=== PATIENT | male | born 1935 | race Caucasian/White ===

== ENCOUNTER 2017-04-18 12:00 | Inpatient (IN) | payer MEDICARE, OTHER ==
[~2017-04-18] VITALS: Ht 170.2 cm; Wt 71.7 kg
[~2017-04-18 12:00] MED LIST: ASPIR 8181 MG PO; AVELOX400 MG PO; AZOPT OPHTH1 %/10 M1 OP; COLACE100 MG PO; COREG25 MG PO; EFFIENT10 MG PO; FISH OIL 1,001000 M2 PO; IRON325 PO; LANTUSSOLASTAR SUBQ; LIPITOR 20 MG T20 M1 PO; LOSARTAN POTAS100 MG PO; LUMIGAN2.5 M1 OP; MEDROLDOSEPACK PO; METFORMIN HCL500 MG PO; MIRALAX17 GM PO; PRED FORTE 1% EY5 M1 OP; PROZAC20 MG PO; SYNTHROID25 MCG PO; TYLENOL325 MG PO; UNICOMPLEX M TA1 TA1 PO; WELLBUTRIN SR150 MG PO
[2017-04-18 12:12] VITALS: BP 181/75
[2017-04-18 12:52] LABS: ABSOLUTE EOSINOPHILS 0.2 thou/uL (0.0-0.7); ABSOLUTE MONOCYTES 0.4 thou/uL (0.0-1.2); ABSOLUTE NEUTROPHILS 4.7 thou/uL (1.6-8.1); BASOPHILS 0.5 %; EOSINOPHILS 2.8 %; HEMATOCRIT 37.7 % (42.0-52.0); HEMOGLOBIN 13.1 gm/dL (14.0-18.0); MCH 34.3 pg (26.0-34.0); MCHC 34.8 g/dL (28.0-37.0); MCV 98.6 fL (80.0-100.0); MONOCYTES 6.8 %; MPV 7.1 fl. (7.2-11.1); NUCLEATED RBCS 0 /100WBC; PLATELET COUNT* 263 thou/uL (150-400); POLYS 73.9 %; RBC 3.83 mil/uL (4.50-6.00); RDW-CV 13.6 % (10.5-14.5); WBC 6.3 thou/uL (4.0-11.0)
[2017-04-18 13:11] LABS: ANION GAP 7 mmol/L (7-16); BUN 17 mg/dL (7-18); CALCIUM 8.3 mg/dL (8.5-10.1); CHLORIDE 99 mmol/L (98-107); CO2 26 mmol/L (21-32); GLUCOSE 233 mg/dL (70-99); POTASSIUM 4.8 mmol/L (3.5-5.1); SODIUM 132 mmol/L (136-145)
[2017-04-18 13:18] LABS: ALBUMIN 3.3 g/dL (3.4-5.0); ALKALINE PHOSPHATASE 65 U/L (46-116); LIPASE 108 U/L (73-393); SGOT 15 U/L (15-37); SGPT 19 U/L (30-65); TOTAL BILIRUBIN 0.8 mg/dL (<0.1-1.0); TOTAL PROTEIN 6.5 g/dL (6.4-8.2); TROPONIN-I LEVEL <0.06 ng/mL (<0.06)
[2017-04-18 13:59] LABS: URINE BILIRUBIN NEGATIVE (Negative); URINE BLOOD NEGATIVE (Negative); URINE CLARITY CLEAR; URINE COLOR YELLOW; URINE GLUCOSE-RANDOM 1+ (Negative); URINE KETONES NEGATIVE (Negative); URINE LEUKOCYTES-REFLEX NEGATIVE (Negative); URINE NITRITE-REFLEX NEGATIVE (Negative); URINE PROTEIN 1+ (Negative); URINE SPECIFIC GRAVITY 1.025 (1.005-1.030); URINE UROBILINOGEN 0.2 E.U./dl (0.2-1.0)
--- NOTE | 2017-04-18 16:33 | EKG ---
[place] [address] ELECTROCARDIOGRAM REPORT Name: LOLY MUÑOZ Room: [place] [address] ADM IN [facility]#: [id number] Admission: 04/18/17 Attend Phys: Levar Garcia Discharge: Date of : 39 Report #: [id number] THIS REPORT FOR: //name// [facility] ED Test Date: 2017-04-18 Test Time: 12:43:50 Pat Name: LOLY MUÑOZ Department: Room: [place] [address] Gender: M Coldfusion: MS : 1935 Requested By: Aakash Apodaca Order Number: [id number] Reading MD: Dennis Powers Measurements Intervals [place] Rate: 44 P: 29 [place]: 201 QRS: -28 QRSD: 96 T: 25 QT: 496 QTc: 425 Interpretive Statements Sinus bradycardia Borderline left axis deviation Anteroseptal infarct, old Compared to ECG 10/27/2015 07:52:42 Myocardial infarct finding now present T-wave abnormality no longer present Electronically Signed On 04-18-2017 16:33:50 DIRECTOR OF QUALITY by Dennis Powers [email or web address] <ELECTRONICALLY SIGNED> By: Dennis Powers MD, FAC 04/18/17 1633 1243 1243 Dennis Powers MD, LOCATED WITHIN [facility] /EPI
[2017-04-18 16:49] VITALS: BP 151/38
[2017-04-18 17:15] VITALS: BP 152/69
[2017-04-18 20:00] VITALS: BP 141/78
[2017-04-19] VITALS: BP 141/63
[2017-04-19 04:00] VITALS: BP 138/67
[2017-04-19 07:23] LABS: ABSOLUTE EOSINOPHILS 0.2 thou/uL (0.0-0.7); ABSOLUTE LYMPHOCYTES 1.3 thou/uL (0.8-5.3); ABSOLUTE MONOCYTES 0.5 thou/uL (0.0-1.2); ABSOLUTE NEUTROPHILS 2.8 thou/uL (1.6-8.1); BASOPHILS 0.6 %; EOSINOPHILS 4.4 %; HEMATOCRIT 35.6 % (42.0-52.0); HEMOGLOBIN 12.7 gm/dL (14.0-18.0); LYMPHOCYTES 26.2 %; MCH 34.9 pg (26.0-34.0); MCHC 35.7 g/dL (28.0-37.0); MCV 97.7 fL (80.0-100.0); MONOCYTES 9.9 %; MPV 7.2 fl. (7.2-11.1); NUCLEATED RBCS 0 /100WBC; PLATELET COUNT* 240 thou/uL (150-400); POLYS 58.9 %; RBC 3.65 mil/uL (4.50-6.00); RDW-CV 13.4 % (10.5-14.5); WBC 4.8 thou/uL (4.0-11.0)
[2017-04-19 07:32] LABS: ALBUMIN 2.9 g/dL (3.4-5.0); ALKALINE PHOSPHATASE 57 U/L (46-116); ANION GAP 8 mmol/L (7-16); BUN 16 mg/dL (7-18); CALCIUM 8.1 mg/dL (8.5-10.1); CHLORIDE 106 mmol/L (98-107); CHOLESTEROL 100 mg/dL (<200); CO2 26 mmol/L (21-32); CREATININE 0.9 mg/dL (0.6-1.3); GLUCOSE 96 mg/dL (70-99); HDL CHOLESTEROL 58 mg/dL (>40); LDL CHOLESTEROL 31 mg/dL (<100); POTASSIUM 4.3 mmol/L (3.5-5.1); SGOT 14 U/L (15-37); SGPT 17 U/L (30-65); TC:HDL 1.7 Ratio (Not establshd); TOTAL BILIRUBIN 0.9 mg/dL (<0.1-1.0); TOTAL PROTEIN 5.8 g/dL (6.4-8.2); TRIGLYCERIDE 56 mg/dL (<150); VLDL 11 mg/dL (<40)
[2017-04-19 07:34] LABS: SERUM ASSESSMENT Clear; SODIUM 140 mmol/L (136-145)
[2017-04-19 08:15] VITALS: BP 131/76
[2017-04-19] MEDS ORDERED: PLAVIX 75 MG TA75 M1 PO (11:46)
[2017-04-19] MEDS ORDERED: COZAAR100 MG PO (11:49)
[2017-04-19 12:00] VITALS: BP 134/73
[2017-04-19 13:12] VITALS: BP 134/73
--- NOTE | 2017-04-19 16:45 | 2DMMODE ---
[place] [address] 2 D/M-MODE ECHOCARDIOGRAM Name: LOLY MUÑOZ Room: [address] IN [facility]#: [id number] Admission: 04/18/17 Attend Phys: Aakash Apodaca Discharge: 04/19/17 Date of : 39 Date of Service: 04/19/17 1645 Report #: [id number] THIS REPORT FOR: //name// APPROVED REPORT Study performed: 04/19/2017 11:53:54 EXAM: Comprehensive 2D, Doppler, and color-flow Echocardiogram Patient Location: In-Patient Room #: [facility] Status: routine BSA: 1.79 HR: 51 bpm BP: 131/76 mmHg Rhythm: NSR Other Information Study Quality: Good Indications AMS 2D Dimensions LVEF(%): 77.02 (>50%) IVSd: 10.08 (7-11mm) LVOT Diam: 21.99 (18-24mm) LVDd: 46.36 mm PWd: 9.61 (7-11mm) Ascending Ao: 32.20 (22-36mm) LVDs: 25.20 (25-40mm) Aortic Root: 36.26 mm Feldman's LVEF: 77.02 % Volumes Left Atrial Volume (Systole) LA ESV Index: 27.40 mL/m2 Aortic Valve AoV Peak Zi.: 1.39 m/s AO Peak Gr.: 7.77 mmHg LVOT Max P.46 mmHg AO Mean Gr.: 3.99 mmHg LVOT Mean P.51 mmHg LVOT Max V: 1.27 m/s AO V2 VTI: 28.17 cm LVOT Mean V: 0.70 m/s NEMESIO (VTI): 3.37 cm2 LVOT V1 VTI: 25.00 cm Mitral Valve E/A Ratio: 0.72 [place] [address] 2 D/M-MODE ECHOCARDIOGRAM Name: LOLY MUÑOZ Room: [address]#: [id number] Admission: 04/18/17 Attend Phys: Aakash Apodaca Discharge: 04/19/17 Date of : 39 Date of Service: 04/19/17 1645 Report #: [id number] MV Decel. Time: 277.64 ms MV E Max Zi.: 0.68 m/s MV PHT: 80.52 ms MVA (PHT): 2.73 cm2 TDI E/Lateral E': 6.18 E/Medial E': 9.71 Medial E' Zi.: 0.07 m/s Lateral E' Zi.: 0.11 m/s Pulmonary Valve PV Peak Zi.: 0.79 m/s PV Peak Gr.: 2.49 mmHg Tricuspid Valve TR Peak Gr.: 22.72 mmHg RVSP: 27.00 mmHg Left Ventricle The left ventricle is normal size. There is normal LV segmental wall motion. There is normal left ventricular wall thickness. Left ventricular systolic function is normal. The left ventricular ejection fraction is within the normal range. LVEF is 60-65%. Grade I - abnormal relaxation pattern. Right Ventricle The right ventricle is normal size. The right ventricular systolic function is normal. Atria The left atrium size is normal. The right atrium size is normal. Aortic Valve The aortic valve is normal in structure. Trace aortic regurgitation. There is no aortic valvular stenosis. Mitral Valve The mitral valve is normal in structure. There is no mitral valve regurgitation noted. No evidence of mitral valve stenosis. Tricuspid Valve The tricuspid valve is normal in structure. Trace tricuspid regurgitation. The RVSP is ____27___ mmHg. Pulmonic Valve The pulmonary valve is normal in structure. Trace [place] [address] 2 D/M-MODE ECHOCARDIOGRAM Name: LOLY MUÑOZ Room: [address] IN M.R.#: [id number] Admission: 04/18/17 Attend Phys: Aakash Apodaca Discharge: 04/19/17 Date of : 39 Date of Service: 04/19/17 1645 Report #: [id number] Great Vessels The aortic root is normal in size. IVC is normal in size and collapses with >50% inspiration Pericardium There is no pericardial effusion. <Conclusion> Left ventricular systolic function is normal. The left ventricular ejection fraction is within the normal range. <ELECTRONICALLY SIGNED> By: Alex Pierre MD, FACC 04/19/17 1645 1645 1645 Alex Pierre MD, FACC /INF
--- NOTE | 2017-04-21 10:39 | CON ---
[address] [address] CONSULTATION Name: LOLY MUÑOZ Room: [address]#: [id number] Admission: 04/18/17 Attend Phys: Levar Garcia Discharge: 04/19/17 Date of : 39 Report #: [id number] THIS REPORT FOR: //name// CC: Geronimo Apodaca DATE OF SERVICE: 04/18/2017 HISTORY OF PRESENT ILLNESS: This is a 81-year-old male patient who was evaluated by me for dizziness, some mild headache. He had some ambulation difficulty. This came spontaneously and then it became better spontaneously. His blood pressure was high when it happened. The dizziness was moderately severe, but his blood sugar was normal. He indicates usually he does not get any headache. REVIEW OF SYSTEMS: Indicate that he had this unsteadiness on the feet. He usually does not get a headache. He had a prior history of stent placement in the chest. He has a history of diabetes and hypertension and hyperlipidemia. He feels improved after coming here. He is not complaining of any new eye, cardiac, respiratory, GI, , musculoskeletal, constitutional, dermatological, hematological, psychiatric, throat, endocrine or allergic symptom associated with present symptomatology. PAST MEDICAL HISTORY: Negative for stroke. FAMILY HISTORY: Negative for early age stroke. SOCIAL HISTORY: He drinks alcohol. He drinks 2-3 drinks when he drinks. PHYSICAL EXAMINATION: NEUROLOGIC: Indicates he is alert, responsive, able to follow simple and complex command. His speech, concentration, fund of knowledge and memory is at his baseline. Cranial nerve examination 2-12 is unremarkable. He has symmetrical strength, sensation, reflexes and tones in all 4 extremities. There is no carotid bruit. There is no meningeal sign. There is no cerebellar sign. GENERAL: He looks pretty well-developed individual who does not have any dysmorphic features of eyes, ears and face. His vision and hearing looks adequate. EXTREMITIES: His pulses are difficult to feel, but he has no edema, cyanosis or jaundice. HEART: Indicates unremarkable heart sounds and no murmur, no atrial fibrillation. LUNGS: No respiratory difficulty or rhonchi was noticed. VITAL SIGNS: Blood pressure is 151/38, pulse is 60, respiration is 10 and temperature is 97.4, but the respiration has been varied from 18-12. Clinically, he does not [place] [address] CONSULTATION Name: LOLY MUÑOZ Gregory Room: [address]#: [id number] Admission: 04/18/17 Attend Phys: Levar Garcia Discharge: 04/19/17 Date of : 39 Report #: [id number] LABORATORY DATA: Indicated a normal white count, but sodium is somewhat low at 132 and glucose is high. 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 IMPRESSION: It looks like the patient's symptoms were because of uncontrolled hypertension. 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 There is no evidence of any central nervous system etiology, which needs any attention at the moment. I will suggest working up for any non-neurological etiology for the patient's symptom and he already takes aspirin a day and he indicates he is also takes Lipitor. Once his lipid profile comes tomorrow that may have to be readjusted, but the biggest emphasis should be evaluation and management of his hypertension and any neurological etiology for his symptoms. Thank you very much for this referral and we will follow this patient along with you. <ELECTRONICALLY SIGNED> By: Aleks Rodriguez MD 04/21/17 1039 1713 [id number] Rodriguez MD /nt
== END 2017-04-19 13:53 | disposition home or self-care (01) | DRG 78 ==
LOC: M.ERS 12:00 → M.2W 13:23 → M.TBA-ER 13:23 → M.2W 17:19
PROVIDERS: Physician Assistant; ADMIT Internal Medicine
DX: I67.4 Hypertensive encephalopathy (principal); E44.0 Moderate protein-calorie malnutrition; R00.1 Bradycardia, unspecified; I10 Essential (primary) hypertension; E11.9 Type 2 diabetes mellitus without complications; E78.5 Hyperlipidemia, unspecified; J44.9 Chronic obstructive pulmonary disease, unspecified; Z90.49 Acquired absence of other specified parts of digestive tract; Z87.891 Personal history of nicotine dependence; Z83.3 Family history of diabetes mellitus; Z82.49 Family history of ischemic heart disease and other diseases of the circulatory system; Z98.49 Cataract extraction status, unspecified eye; Z95.5 Presence of coronary angioplasty implant and graft

== ENCOUNTER 2017-04-21 19:55 | Inpatient (IN) | payer MEDICARE ==
[~2017-04-21] VITALS: Ht 170.2 cm; Wt 70.8 kg
[~2017-04-21 19:55] MED LIST changes: +COZAAR100 MG PO; +PLAVIX 75 MG TA75 M1 PO
[2017-04-21 19:56] VITALS: BP 139/71
[2017-04-21 20:23] LABS: HEMATOCRIT 38.2 % (42.0-52.0); HEMOGLOBIN 13.2 gm/dL (14.0-18.0); MCHC 34.5 g/dL (28.0-37.0); MCV 98.4 fL (80.0-100.0); MPV 7.7 fl. (7.2-11.1); NUCLEATED RBCS 0 /100WBC; PLATELET COUNT* 234 thou/uL (150-400); RBC 3.88 mil/uL (4.50-6.00); RDW-CV 13.8 % (10.5-14.5); WBC 14.8 thou/uL (4.0-11.0)
[2017-04-21 20:38] LABS: ABSOLUTE LYMPHOCYTES 0.6 thou/uL (0.8-5.3); ABSOLUTE MONOCYTES 0.6 thou/uL (0.0-1.2); ABSOLUTE NEUTROPHILS 13.6 thou/uL (1.6-8.1); ATYPICAL LYMPHS 2 %; PLATELET ESTIMATE ADEQUATE
[2017-04-21 20:41] LABS: ANION GAP 8 mmol/L (7-16); BUN 27 mg/dL (7-18); CALCIUM 8.7 mg/dL (8.5-10.1); CHLORIDE 102 mmol/L (98-107); CO2 28 mmol/L (21-32); CREATININE 1.3 mg/dL (0.6-1.3); GLUCOSE 272 mg/dL (70-99); POTASSIUM 4.6 mmol/L (3.5-5.1); SODIUM 138 mmol/L (136-145)
[2017-04-21 20:46] LABS: ALBUMIN 3.4 g/dL (3.4-5.0); ALKALINE PHOSPHATASE 63 U/L (46-116); SGOT 12 U/L (15-37); SGPT 17 U/L (30-65); TOTAL BILIRUBIN 0.7 mg/dL (<0.1-1.0); TOTAL PROTEIN 6.7 g/dL (6.4-8.2); TROPONIN-I LEVEL <0.06 ng/mL (<0.06)
[2017-04-21 20:51] LABS: INFLUENZA A ANTIGEN None Detected (None Detect); INFLUENZA B ANTIGEN None Detected (None Detect)
[2017-04-21 23:41] VITALS: BP 146/80
[2017-04-21 23:50] VITALS: BP 118/63
[2017-04-22 01:24] LABS: URINE BILIRUBIN NEGATIVE (Negative); URINE BLOOD NEGATIVE (Negative); URINE CLARITY CLEAR; URINE COLOR YELLOW; URINE GLUCOSE-RANDOM 3+ (Negative); URINE KETONES NEGATIVE (Negative); URINE LEUKOCYTES-REFLEX NEGATIVE (Negative); URINE NITRITE-REFLEX NEGATIVE (Negative); URINE PROTEIN NEGATIVE (Negative); URINE UROBILINOGEN 0.2 E.U./dl (0.2-1.0)
[2017-04-22 05:23] LABS: HEMATOCRIT 32.4 % (42.0-52.0); MCH 33.9 pg (26.0-34.0); MCHC 34.4 g/dL (28.0-37.0); MCV 98.5 fL (80.0-100.0); MPV 7.6 fl. (7.2-11.1); RBC 3.29 mil/uL (4.50-6.00); RDW-CV 13.8 % (10.5-14.5); WBC 12.7 thou/uL (4.0-11.0)
[2017-04-22 05:37] LABS: ALBUMIN 2.8 g/dL (3.4-5.0); CALCIUM 7.9 mg/dL (8.5-10.1); CREATININE 1.1 mg/dL (0.6-1.3); POTASSIUM 3.9 mmol/L (3.5-5.1); TOTAL BILIRUBIN 0.9 mg/dL (<0.1-1.0); TOTAL PROTEIN 5.7 g/dL (6.4-8.2)
[2017-04-22 06:00] LABS: HEMOGLOBIN 11.2 gm/dL (14.0-18.0)
[2017-04-22 08:12] VITALS: BP 136/65
[2017-04-22 12:00] VITALS: BP 128/62
[2017-04-22 14:08] VITALS: BP 142/70
--- NOTE | 2017-04-22 16:34 | EKG ---
[place] [address] ELECTROCARDIOGRAM REPORT Name: LOLY MUÑOZ Room: [address] ADM IN [facility].#: [id number] Admission: 04/21/17 Attend Phys: Adelina Cody MD Discharge: Date of : 39 Report #: [id number] THIS REPORT FOR: //name// [facility] ED Test Date: 2017-04-21 Test Time: 20:19:37 Pat Name: LOLY MUÑOZ Department: Room: [facility] Gender: M [employer] T[employer]: M : 1935 Requested By: Ellen Rodriguez Order Number: [id number] MD: Fracisco Lopez Measurements Intervals [place] Rate: 75 P: 23 SD: 150 QRS: 210 QRSD: 107 T: 29 QT: 388 QTc: 434 Interpretive Statements Sinus rhythm Atrial premature complexes Right axis deviation Anteroseptal infarct, old Compared to ECG 04/18/2017 12:43:50 Atrial premature complex(es) now present Right-axis deviation now present Sinus bradycardia no longer present Myocardial infarct finding still present Electronically Signed On 04-22-2017 16:34:21 ENGINEERING DIRECTOR by Fracisco Lopez [email or web address] <ELECTRONICALLY SIGNED> By: Alan Lopez MD, FAC 04/22/17 1634 18 18 Alan Lopez MD, FAC /EPI
[2017-04-22 21:00] VITALS: BP 140/55
[2017-04-23 04:42] LABS: HEMATOCRIT 32.6 % (42.0-52.0); HEMOGLOBIN 11.6 gm/dL (14.0-18.0); MCH 34.7 pg (26.0-34.0); MCHC 35.5 g/dL (28.0-37.0); MCV 97.6 fL (80.0-100.0); MPV 7.8 fl. (7.2-11.1); RBC 3.34 mil/uL (4.50-6.00); RDW-CV 13.5 % (10.5-14.5); WBC 10.8 thou/uL (4.0-11.0)
[2017-04-23 05:02] LABS: CALCIUM 8.6 mg/dL (8.5-10.1); CREATININE 1.2 mg/dL (0.6-1.3); MAGNESIUM 1.7 mg/dL (1.8-2.4)
[2017-04-23 08:00] VITALS: BP 136/55
[2017-04-23 16:34] VITALS: BP 151/62
[2017-04-23 19:58] VITALS: BP 142/58
[2017-04-24 04:33] LABS: HEMATOCRIT 32.9 % (42.0-52.0); HEMOGLOBIN 11.5 gm/dL (14.0-18.0); MCH 34.4 pg (26.0-34.0); MCHC 34.9 g/dL (28.0-37.0); MCV 98.4 fL (80.0-100.0); RBC 3.34 mil/uL (4.50-6.00); RDW-CV 13.6 % (10.5-14.5); WBC 13.4 thou/uL (4.0-11.0)
[2017-04-24 04:56] LABS: ALBUMIN 2.9 g/dL (3.4-5.0); CALCIUM 8.1 mg/dL (8.5-10.1); CREATININE 1.2 mg/dL (0.6-1.3); MAGNESIUM 1.9 mg/dL (1.8-2.4); TOTAL BILIRUBIN 0.3 mg/dL (<0.1-1.0); TOTAL PROTEIN 5.6 g/dL (6.4-8.2)
[2017-04-24 08:00] VITALS: BP 134/71
[2017-04-24] MEDS ORDERED: DOXYCYCLINE 10100 MG PO (11:30)
[2017-04-24] MEDS ORDERED: PREDNISONE 20 M20 MG PO (11:32)
[2017-04-24] MEDS ORDERED: DUONEB 2.5-0.5 M3 ML INH (11:41)
[2017-04-24 11:52] VITALS: BP 134/71
== END 2017-04-24 12:05 | disposition home or self-care (01) | DRG 178 ==
LOC: M.ERS 19:55 → M.TBA-ER 22:28 → M.3W 22:28 → M.2W 23:09 → M.3W 04-22 17:56
PROVIDERS: Emergency Medicine; ADMIT Internal Medicine
DX: J15.6 Pneumonia due to other Gram-negative bacteria (principal); J44.1 Chronic obstructive pulmonary disease with (acute) exacerbation; R65.10 Systemic inflammatory response syndrome (SIRS) of non-infectious origin without acute organ dysfunction; E87.2 Acidosis; J44.0 Chronic obstructive pulmonary disease with (acute) lower respiratory infection; E44.1 Mild protein-calorie malnutrition; E11.9 Type 2 diabetes mellitus without complications; I10 Essential (primary) hypertension; E78.00 Pure hypercholesterolemia, unspecified; Z95.5 Presence of coronary angioplasty implant and graft; Z90.49 Acquired absence of other specified parts of digestive tract; Z98.49 Cataract extraction status, unspecified eye; Z82.49 Family history of ischemic heart disease and other diseases of the circulatory system; Z83.3 Family history of diabetes mellitus; Z87.891 Personal history of nicotine dependence; Z79.899 Other long term (current) drug therapy

== ENCOUNTER → 2017-06-02 | Outpatient (CLI) | payer MEDICARE, OTHER ==
[~2017-06-02] MED LIST changes: +DOXYCYCLINE 10100 MG PO; +DUONEB 2.5-0.5 M3 ML INH; +PREDNISONE 20 M20 MG PO
== END ==
LOC: M.LAB 10:56
PROVIDERS: Psychiatry & Neurology Neuromuscular Medicine
DX: I10 Essential (primary) hypertension (principal); R42 Dizziness and giddiness

== ENCOUNTER → 2017-08-29 | Outpatient (CLI) | payer MEDICARE, OTHER | LOC: M.CT 08:14 | DX: J43.8 Other emphysema (principal); R91.8 Other nonspecific abnormal finding of lung field; M47.814 Spondylosis without myelopathy or radiculopathy, thoracic region; I10 Essential (primary) hypertension ==